=== PATIENT | male | born 1990 ===

== ENCOUNTER 2023-05-14 08:53 | Emergency (ER) | payer OTHER, SELFPAY ==
--- NOTE | ~2023-05-14 | XR_ITS ---
STUDY: Thoracic and lumbar spine. INDICATION: Thoracic and lumbar spine pain after fall. COMPARISON: 02/17/2016 thoracic spine TECHNIQUE: 4 view thoracic spine, three-view lumbar spine FINDINGS: Thoracic spine: Minimal scoliosis of the thoracic spine appears more exaggerated. Thoracic vertebral bodies and intervertebral discs are maintained in height. No focal paravertebral soft tissue swelling seen. Lumbar spine: 5 nonrib-bearing lumbar vertebral bodies are maintained in height space is preserved. Alignment within normal limits. Pedicles and SI joints are intact. XR/XR lumbar spine 2-3V IMPRESSION: Slight increase in minimal thoracic scoliosis. No acute bony pathology thoracic and lumbar spine.
--- NOTE | ~2023-05-14 | XR_ITS ---
STUDY: Thoracic and lumbar spine. INDICATION: Thoracic and lumbar spine pain after fall. COMPARISON: 02/17/2016 thoracic spine TECHNIQUE: 4 view thoracic spine, three-view lumbar spine FINDINGS: Thoracic spine: Minimal scoliosis of the thoracic spine appears more exaggerated. Thoracic vertebral bodies and intervertebral discs are maintained in height. No focal paravertebral soft tissue swelling seen. Lumbar spine: 5 nonrib-bearing lumbar vertebral bodies are maintained in height space is preserved. Alignment within normal limits. Pedicles and SI joints are intact. XR/XR thoracic spine 2V IMPRESSION: Slight increase in minimal thoracic scoliosis. No acute bony pathology thoracic and lumbar spine.
[2023-05-14 09:00] VITALS: BP 111/41; PULSE 62; RESP 19; TEMP 36.6; O2SAT 98; BMI 23.0
--- NOTE | 2023-05-14 09:15 | ED_ITS ---
HPI - Back Pain/Injury General Chief Complaint: Back Pain/Injury Stated Complaint: back pain Time Seen by Provider: 05/14/23 08:57 History of Present Illness HPI Narrative: Patient is a 32-year-old male presents today with having mid back pain after slipping on the stairs. Patient complaining of pain that is sharp. Worse with movement. There is no radiation. There is no bowel urinary incontinence. There is no focal weakness. Walking and he slipped and hit his mid back area. Related Data Previous Rx's Medication Instructions Recorded ibuprofen 400 mg tablet 400 mg PO Q6H PRN pain #20 tabs 05/14/23 Allergies Allergy/AdvReac Type Severity Reaction Status Date / Time coconut Allergy Severe ANAPHYLAXIS Verified 05/14/23 08:59 Penicillins [PENICILLINS] Allergy Unknown UNKNOWN Verified 05/14/23 08:59 Review of Systems Review of Systems: No bowel urinary incontinence no focal weakness not on blood thinners Yes all other systems are reviewed and are negative [facility] Past Medical History Attestation statement: The following information was validated with the patient. Social History Social History Advance Directives: No Advance Directives Information Provided: No Physical Exam Vital Signs: Vital Signs: Last Vital Signs Temp 98 F 05/14/23 09:00 Pulse 54 05/14/23 11:18 Resp 15 05/14/23 11:18 BP 108/72 05/14/23 11:18 Pulse Ox 100 05/14/23 11:18 O2 Del Method Room Air 05/14/23 11:18 BMI result Body Mass Index 23.0 Appearance: Alert. Oriented X3. No acute distress. Eyes: Pupils equal, round and reactive to light. ENT: Pharynx normal. Neck: Normal inspection. Neck supple. No lymph nodes noted. No crepitus CVS: Normal heart rate and rhythm. Pulses normal. Normal S1 and S2 Respiratory: No respiratory distress. Breath sounds normal. No Wheezing. No rales Abdomen: Soft and nontender. No rigidity. No distention. good BS x4 Examination the back there is no spinal tenderness. There is no gross step-off. Mild upper lumbar lower thoracic pain on palpation. Skin: Skin warm and dry. Normal skin color. Normal skin turgor. Extremities: No lower extremity edema. Neurovascular intact to all extremities. No Lacerations. No Rash Neuro: Oriented X 3. No motor deficit. No sensory deficit. Moving all extermities. No slurred speech Medications Administered Discontinued Medications Generic Name Dose Route Start Last Admin Trade Name Freq PRN Reason Stop Dose Admin Ibuprofen 400 mg 05/14/23 09:15 05/14/23 09:25 Ibuprofen 400 Mg Tablet PO 05/14/23 09:16 400 mg ONCE ONE Administration Medical Decision Making Medical Decision Making MDM Narrative: Positive back pain likely secondary to musculoskeletal causes. Less likely from fracture. Definitely no signs of cord compression is patient has no bowel urinary incontinence no focal weakness. The mechanism did not fit. We will go ahead and get an x-ray just to rule out the possibility of fracture. In stable condition Motrin given for pain. Differential Diagnosis Differential Diagnoses: The differential diagnosis associated with the presentation includes Corner coronary syndrome, cord compression, fracture, musculoskeletal back pain Admission/Observation Consideration of admission/observation: Escalation of care including a dmission/observation considered No need for admission patient well-appearing Independent Interpretation I performed an independent interpretation of an: Plain X-Ray Interpretation: X-ray of the thoracic and lumbar area show no gross fracture Radiology Impression Discussion of test interpretation with radiology: I have reviewed the radiologist's reading. Discharge Plan Discharge Clinical Impression: Strain of lumbar region Patient Disposition: Home, Self-Care Instructions: Acute Low Back Pain (ED) Prescriptions: New ibuprofen 400 mg tablet 400 mg PO Q6H PRN (Reason: pain) Qty: 20 0RF Referrals: Physician,None [Primary Care Provider] - 05/20/23
[2023-05-14] MEDS: Ibuprofen 400 MG TABLET PO (09:25)
[2023-05-14 11:18] VITALS: BP 108/72; PULSE 54; RESP 15; O2SAT 100
== END 2023-05-14 12:19 | disposition home or self-care (01) ==
PROVIDERS: Emergency Provider Emergency Medicine Emergency Medical Services
DX: S39.012A Strain of muscle, fascia and tendon of lower back, initial encounter (principal); W10.9XXA Fall (on) (from) unspecified stairs and steps, initial encounter; Y92.9 Unspecified place or not applicable; Y93.01 Activity, walking, marching and hiking; Y99.9 Unspecified external cause status
CPT/HCPCS: 72070; 72100; 99283; 99284

== ENCOUNTER 2025-06-28 20:57 | Emergency (ER) | payer OTHER, SELFPAY ==
[2025-06-28 21:02] VITALS: BP 124/86; PULSE 63; RESP 16; TEMP 35.9; O2SAT 98; BMI 26.4
[2025-06-28 21:28] LABS: Hematocrit 51.7 % (42.0-52.0); Hemoglobin 18.2 g/dl (14.0-18.0); Imm Gran Abs Auto 0.09 X10*3/uL (0.00-0.03); Imm Gran Pct Auto 0.7 % (0.0-0.4); Lymphocytes Absolute Auto 5.1 X10*3/uL (1.2-4.9); MANUAL DIFF FLAG SCAN; Mean Corpuscular HGB Conc 35.2 g/dl (31.0-36.0); Mean Corpuscular Hemoglobin 31.5 pg (27.0-33.0); Mean Corpuscular Volume 89.4 fL (80.0-98.0); NRBC Abs Auto 0.000 X10*3/uL (0.0-0.012); NRBC Pct Auto 0.0 /100WBC (0.0-0.2); Platelet Count 285 X10*3/uL (160-400); Red Blood Count 5.78 X10*6/uL (4.60-5.80); SCAN SMEAR FLAG 1; White Blood Count 13.2 X10*3/uL (4.8-10.8)
[2025-06-28 21:42] LABS: Alanine Aminotransferase 36 U/L (0-40); Albumin Level 5.0 g/dL (3.5-5.0); Alkaline Phosphatase 82 U/L (39-117); Anion Gap 20 (12-20); Aspartate Amino Transferase 33 U/L (5-37); Blood Urea Nitrogen 10 mg/dL (9-16); Calcium 8.4 mg/dL (8.4-10.2); Carbon Dioxide 18 mmol/L (22-29); Chloride 107 mmol/L (96-108); Creatinine Clr Calc Pharmacy 95.0; Estimated Glomerular Filt Rate > 60; Potassium 3.3 mmol/L (3.3-5.1); Sodium 142 mmol/L (135-145); Total Protein 7.5 g/dL (6.5-8.0)
--- NOTE | 2025-06-28 21:52 | PC.NURSE ---
PT brought for ETOH from home, pt currently getting agitated stating the he wants to go home. however does not have a sober ride home at the current moment, security called due to possible elopement, pt kepts stating that he will walk out, attempted to contact emergency contact, voicemail left
--- OUTSIDE RECORDS SUMMARY | 2025-06-28 21:54 | XMS_ITS ---
Author Organization Unknown ENCOUNTERS Encounter Performer Location Date Diagnosis Diagnosis Status Pre Admit [address] [address] [id number] *Note: Encounters from your own facility or health system may be excluded. Allergies, Adverse Reactions, Alerts Allergen Type Severity Identification Date Medications Name Date Quantity Days Supplied GPI Number
--- NOTE | 2025-06-28 22:33 | PC.NURSE ---
pt medicated with primary RN Jose Alfredo and .
--- NOTE | 2025-06-28 22:34 | PC.NURSE ---
Pt medicated for agitation, pt visitor showed but then stormed out and left, pt continually need to be redirected, security was called for redirection 1 Pt placed in restraints, due increased agitation and aggressiveness with staff
[2025-06-28 22:37] VITALS: BP 117/61; PULSE 61; RESP 18; O2SAT 97
[2025-06-28 22:41] VITALS: BP 117/61; PULSE 66; RESP 15; O2SAT 96
[2025-06-28 22:45] VITALS: BP 116/76; PULSE 70; RESP 19; O2SAT 96
[2025-06-28 23:00] VITALS: BP 119/78; PULSE 73; RESP 18; O2SAT 99
--- NOTE | 2025-06-28 23:46 | ED_ITS ---
HPI - Alcohol General Chief Complaint: ETOH/Substance Use Stated Complaint: ETOH combative Time Seen by Provider: 06/28/25 21:05 History of Present Illness HPI narrative: Patient is a 35-year-old male presented today grossly intoxicated was found unresponsive on the floor then became combative with EMS police got involved patient was sent to the ED. Denies any suicidal homicidal ideation. Related Data Previous Rx's ?Medication ?Instructions ?Recorded ibuprofen 400 mg tablet 400 mg PO Q6H PRN pain #20 t abs 05/14/23 Allergies Allergy/AdvReac Type Severity Reaction Status Date / Time coconut Allergy Severe ANAPHYLAXIS Verified 06/28/25 21:09 Penicillins (PENICILLINS) Allergy Unknown UNKNOWN Verified 06/28/25 21:09 Review of Systems 2 Review of Systems: Positive EtOH PMFSH Past Medical History Attestation statement: The following information was validated with the patient. Social History Social History Alcohol intake: current Alcohol intake frequency: a few times a week Alcohol type: hard liquor Smoked in Last 30 Days: No Advance Directives: No Advance Directives on File: No Do you have a plan to hurt others: No Plan Physical Exam ED Exam Exam: Appearance: Alert. No acute distress. Eyes: Pupils equal, round and reactive to light. ENT: Pharynx normal. Neck: Normal inspection. Neck supple. No lymph nodes noted. No crepitus CVS: Normal heart rate and rhythm. Pulses normal. Normal S1 and S2 Respiratory: No respiratory distress. Breath sounds normal. No Wheezing. No rales Abdomen: Soft and nontender. No rigidity. No distention. good BS x4 Skin: Skin warm and dry. Normal skin color. Normal skin turgor. Extremities: No lower extremity edema. Neurovascular intact to all extremities. No Lacerations. No Rash Neuro: No motor deficit. No sensory deficit. Moving all extermities. No slurred speech . Cranial nerves grossly intact. Vital Signs: Vital Signs - 24 hr 06/28/25 21:02 06/28/25 22:37 06/28/25 22:41 Temperature 96.7 F L Pulse Rate 63 61 66 Respiratory Rate 16 18 15 Blood Pressure 124/86 117/61 117/61 Pulse Oximetry 98 97 96 Oxygen Delivery Method Room Air Room Air Room Air 06/28/25 22:45 06/28/25 23:00 06/29/25 11:48 Temperature Pulse Rate 70 73 63 Respiratory Rate 19 18 12 Blood Pressure 116/76 119/78 112/70 Pulse Oximetry 96 99 98 Oxygen Delivery Method Room Air Room Air Room Air BMI result Body Mass Index 26.4 Course Reevaluation(s) Reevaluation #1: Signed out to me by Dr. Hinton this a.m. a 7, re-examined now is awake alert oriented x3 sober he does not want detox Time: 12:47 Medical Decision Making Medical Decision Making [facility] Narrative: Patient is initial labs showed an alcohol of 437. Interestingly patient is fully awake alert. Patient has no one to take him home to be monitored. His significant other left. Patient then tried Eloped. Try to redirect patient but to no avail. because the patient's safety ended up giving patient Haldol Versed and Benadryl. Patient will be monitored carefully. We had the 4 point restrained him does he still tries to leave from bed. Patient is now sleeping after medication. Awaiting clinical sobriety. Differential Diagnosis Differential Diagnoses: The differential diagnosis associated with the presentation includes Alcohol intoxication electrolyte disturbance polysubstance abuse Admission/Observation Consideration of admission/observation: Escalation of care including admission/observation considered Lab Data [facility] Lab Attestation statement: I reviewed the patient's lab results. 06/28/25 21:19 06/28/25 21:19 Labs: Lab Results 06/28/25 06/29/25 Range/Units 21:19 04:29 WBC 13.2 H (4.8-10.8) X10*3/uL RBC 5.78 (4.60-5.80) X10*6/uL Hgb 18.2 H (14.0-18.0) g/dl Hct 51.7 (42.0-52.0) % MCV 89.4 (80.0-98.0) fL MCH 31.5 (27.0-33.0) pg MCHC 35.2 (31.0-36.0) g/dl RDW 12.7 (11.0-16.0) % Plt Count 285 (160-400) X10*3/uL MPV 10.2 (9.4-12.4) fL Immature Gran % (Auto) 0.7 H (0.0-0.4) % Neut % (Auto) 54.1 (45-73) % Lymph % (Auto) 39.0 (20-40) % [place] % (Auto) 4.7 (2-11) % Eos % (Auto) 1.1 (0-4) % Baso % (Auto) 0.4 (0-2) % Lymph # (Auto) 5.1 H (1.2-4.9) X10*3/uL [place] # (Auto) 0.6 (0.1-1.2) X10*3/uL Eos # (Auto) 0.2 (0.0-0.4) X10*3/uL Baso # (Auto) 0.1 (0.0-0.2) X10*3/uL Abs Immat Gran (auto) 0.09 H (0.00-0.03) X10*3/uL Absolute Neuts (auto) 7.1 (2.0-8.3) x10*3/uL Absolute Nucleated RBC 0.000 (0.0-0.012) X10*3/uL Nucleated RBC % (auto) 0.0 (0.0-0.2) /100WBC Smear Tech's Comments VERIFIED Sodium 142 (135-145) mmol/L Potassium 3.3 (3.3-5.1) mmol/L Chloride 107 (96-108) mmol/L Carbon Dioxide 18 L (22-29) mmol/L Anion Gap 20 (12-20) BUN 10 (9-16) mg/dL Creatinine 1.07 (0.5-1.4) mg/dL Estim Creat Clear Calc 95.0 Estimated GFR > 60 Random Glucose 136 H (60-115) mg/dL Calcium 8.4 (8.4-10.2) mg/dL Total Bilirubin 1.4 H (0.0-1.0) mg/dL AST 33 (5-37) U/L ALT 36 (0-40) U/L Alkaline Phosphatase 82 (39-117) U/L Total Protein 7.5 (6.5-8.0) g/dL Albumin 5.0 (3.5-5.0) g/dL Urine Opiates Screen Not Detected (Not Detect) Ur Buprenorphine Scrn Not Detected (Not Detect) ng/mL Ur Oxycodone Screen Not Detected (Not Detect) ng/mL Urine Methadone Screen Not Detected (Not Detect) ng/mL Urine Fentanyl Screen Not Detected (Not Detect) Ur Barbiturates Screen Not Detected (Not Detect) Ur Phencyclidine Scrn Not Detected (Not Detect) Ur Amphetamines Screen Not Detected (Not Detect) U Benzodiazepines Scrn POSITIVE H (Not Detect) Urine Cocaine Screen Not Detected (Not Detect) U Marijuana (THC) Screen POSITIVE H (Not Detect) Ethyl Alcohol 437 H* mg/dL External Record Review EMS record Chronic Conditions polysubstance abuse Social Determinants Patient?s care significantly limited by Social Determinants of Health including: Alcoholism and drug addiction in family, Problems related to primary support group and Unemployment Medications Administered Discontinued Medications Generic Name Dose Route Start Last Admin Trade Name Freq PRN Reason Stop Dose Admin Diphenhydramine HCl 50 mg 06/28/25 22:18 06/28/25 22:32 Diphenhydramine Hcl 50 Mg/Ml Vial IM 06/28/25 22:19 50 mg ONCE ONE Administration Haloperidol Lactate 5 mg 06/28/25 22:18 06/28/25 22:32 Haloperidol Lactate 5 Mg/Ml Vial IM 06/28/25 22:19 5 mg ONCE ONE Administration Sodium Chloride 1,000 mls @ 999 mls/hr 06/28/25 23:15 06/28/25 23:11 Ns IV 06/29/25 00:15 999 mls/hr .Q1H1M JOSE Administration Sodium Chloride 1,000 mls @ 999 mls/hr 06/28/25 23:15 06/28/25 23:13 Ns IV 06/29/25 00:15 999 mls/hr .Q1H1M JOSE Administration Midazolam HCl 2 mg 06/28/25 22:18 06/28/25 22:32 Midazolam Hcl 2 Mg/2 Ml Vial IM 06/28/25 22:19 2 mg ONCE ONE Administration Ondansetron HCl 4 mg 06/28/25 23:04 06/28/25 23:10 Ondansetron Hcl 4 Mg/2 Ml Vial IVPUSH 06/28/25 23:05 4 mg ONCE ONE Administration Discharge Plan Discharge Clinical Impression: Alcoholic intoxication Patient Disposition: Home, Self-Care Instructions: Abuse of Alcohol (DC) Prescriptions: No Action ibuprofen 400 mg tablet 400 mg PO Q6H PRN (Reason: pain) Qty: 20 0RF Print Language: [place]ian
[2025-06-29 04:46] LABS: Cannabinoid Screen Urine POSITIVE (Not Detect)
[2025-06-29 11:48] VITALS: BP 112/70; PULSE 63; RESP 12; O2SAT 98
--- NOTE | 2025-06-29 11:48 | PC.NURSE ---
Pt A&O X4 VSS ate sandwich and drank GA [place] well NAD No complaints
[2025-06-29 13:00] VITALS: BP 112/70; PULSE 63; RESP 12; TEMP -17.7; TEMP 0; O2SAT 98
== END 2025-06-29 13:02 | disposition home or self-care (01) ==
PROVIDERS: Emergency Medicine Emergency Medical Services; Emergency Provider Emergency Medicine
DX: F10.129 Alcohol abuse with intoxication, unspecified (principal); Y90.8 Blood alcohol level of 240 mg/100 ml or more; R40.4 Transient alteration of awareness; Z51.81 Encounter for therapeutic drug level monitoring; Z79.899 Other long term (current) drug therapy
CPT/HCPCS: 36415; 80053; 80307; 85025; 99285; J1200; J1630; J2250; J2405